=== PATIENT | female | born 1970 | race Caucasian/White ===

== ENCOUNTER 2018-06-18 18:30 | Emergency (ER) | payer OTHER ==
[~2018-06-18 18:30] MED LIST: Iopamidol 370 76% 100 ML VIAL ONE
[2018-06-18] MEDS ORDERED: Fentanyl 100 MCG/2 ML VIAL ONE ×2 (19:45→20:39)
[2018-06-18 19:48] LABS: Clarity SLIGHTLY (Clear)
[2018-06-18 19:49] LABS: Bilirubin Negative (Negative); Blood, Urine Negative (Negative); Glucose, Urine (Dipstick) Negative (Negative); Leukocyte Negative (Negative); Nitrite Negative (Negative); Protein, Urine (Dipstick) Negative (Neg-Trace); Urobilinogen 0.2 mg/dL (0.2-1.0); pH, Urine 7.5 (5.0-9.0)
[2018-06-18 19:53] LABS: BHCG - Serum Negative (NEGATIVE); Pregs Control Background? CLEAR/WHITE (CLR/WHITE); Pregs Control Bar Appear? YES (CONTROL BAR)
[2018-06-18 20:02] LABS: ALT (SGPT) 50 U/L (8-55); AST (SGOT) 31 U/L (5-34); Albumin 4.6 g/dL (3.5-5.0); Alkaline Phosphatase 74 U/L (40-150); Anion Gap 17 mmol/L (10-20); BUN (Urea Nitrogen) 9 mg/dL (7.0-18.7); Bilirubin, Total 0.4 mg/dL (0.2-1.2); Calc. Creatinine Clearance 0 mL/min (70-130); Calcium 10.1 mg/dL (7.8-10.44); Carbon Dioxide 22 mmol/L (22-29); Chloride 104 mmol/L (98-107); Estimated GFR-MDRD 88; Globulin 3.2 g/dL (2.4-3.5); Glucose 82 mg/dL (70-105); Lipase 47 U/L (8-78); Potassium 3.9 mmol/L (3.5-5.1); Protein, Total 7.8 g/dL (6.0-8.3); Sodium 139 mmol/L (136-145)
[2018-06-18 20:10] LABS: Band 1 % (5-11); Eosinophils 2 % (0-10); Lymphocytes 37 % (21-51); MDiff Complete? YES; Mean Corpuscular HGB CONC 31.8 g/dL (32.0-36.0); Mean Corpuscular Hemoglobin 28.8 pg (27.0-31.0); Mean Corpuscular Volume 90.7 fL (78.0-98.0); Mean Platelet Volume 5.9 fL (7.4-10.4); Monocytes 1 % (0-10); Neutrophil 59 % (42-75); Platelet Count 276 thou/uL (130-400); RBC Distribution Width 12.6 % (11.5-14.5); Red Blood Cell (RBC) Count 4.87 mill/uL (4.20-5.40); Small Platelets SLIGHT; White Blood Cell (WBC) Count 14.3 thou/uL (4.8-10.8)
[2018-06-18] MEDS ORDERED: Ketorolac Tromethamine 30 MG/ML VIAL ONE (20:40)
[2018-06-18] MEDS ORDERED: Piperacillin/Tazobactam 4.5 GM VIAL ONE (20:41)
--- NOTE | 2018-06-18 21:07 | CT ---
CT ABDOMEN AND PELVIS WITH CONTRAST: 06/18/[address] of the abdomen and pelvis was performed for evaluation of left lower quadrant pain. Axial s lices were acquired after giving IV contrast. Coronal and sagittal reconstructions were done. There is an intense inflammatory reaction around the lower left colon at the junction of lower descen ding colon and sigmoid colon. Diverticula are seen in the region. The findings are consistent with d iverticulitis. No abscess or free air was appreciated. Additionally, nearby there is a 2.7 cm left ov [place] cyst. The remainder of the scan was unremarkable. The lung bases are clear. The liver, spleen, pancreas, ad renal glands, kidneys, and abdominal aorta showed no acute findings. The CT of the pelvis was remarka ble for the findings listed above. There was no free air or free fluid in the pelvis. IMPRESSION: 1. Diverticulitis with intense inflammatory reaction at the junction of the lower descending and proximal sigmoid colon. 2. 2.7 cm left ovarian cyst. It would be better characterized by ultrasound to determine if it i s purely cystic or complex. This could be done electively. Findings discussed with Dr. Patel at 2025 on 06/18/18. POS: HOME
== END 2018-06-18 22:00 | disposition home or self-care (01) ==
LOC: BURERS 18:30
DX: K57.32 Diverticulitis of large intestine without perforation or abscess without bleeding (principal); N83.202 Unspecified ovarian cyst, left side; E11.9 Type 2 diabetes mellitus without complications; I10 Essential (primary) hypertension; Z79.899 Other long term (current) drug therapy; Z79.84 Long term (current) use of oral hypoglycemic drugs
CPT/HCPCS: 74177; 80053; 81003; 83690; 84703; 85025; 94760; 96365; 96375; 96376; J1885; J2543; J3010; Q9967

== ENCOUNTER 2020-08-16 07:52 | Emergency (ER) | payer OTHER ==
[2020-08-16] MEDS ORDERED: Fentanyl 100 MCG/2 ML VIAL ONE (08:20)
[2020-08-16] MEDS ORDERED: Ondansetron PF 4 MG/2 ML Vial ONE (08:20)
[2020-08-16 09:04] LABS: #Basophils 0.1 thou/uL (0.0-0.2); #Eosinphils 0.1 thou/uL (0.0-0.7); #Lymphocytes 1.8 thou/uL (1.20-3.40); #Monocytes 0.6 thou/uL (0.11-0.59); #Neutrophils 5.5 thou/uL (1.40-6.50); %Basophils 1.1 % (0.0-1.0); %Eosinophils 1.8 % (0.0-10.0); %Lymphocytes 22.7 % (21.0-51.0); %Monocytes 6.7 % (0.0-10.0); %Neutrophils 67.6 % (42.0-75.0); Hemoglobin 13.6 g/dL (12.0-16.0); Mean Corpuscular HGB CONC 31.7 g/dL (32.0-36.0); Mean Corpuscular Hemoglobin 29.5 pg (27.0-31.0); Mean Corpuscular Volume 92.8 fL (78.0-98.0); Mean Platelet Volume 6.9 fL (7.4-10.4); Platelet Count 275 thou/uL (130-400); RBC Distribution Width 12.5 % (11.5-14.5); Red Blood Cell (RBC) Count 4.62 mill/uL (4.20-5.40); White Blood Cell (WBC) Count 8.1 thou/uL (4.8-10.8)
[2020-08-16 09:13] LABS: Lactic Acid 2.2 mmol/L (0.5-2.2)
[2020-08-16 09:18] LABS: ALT (SGPT) 35 U/L (8-55); AST (SGOT) 28 U/L (5-34); Albumin 3.8 g/dL (3.5-5.0); Alkaline Phosphatase 91 U/L (40-110); Anion Gap 15 mmol/L (10-20); BUN (Urea Nitrogen) 10 mg/dL (7.0-18.7); Bilirubin, Total 0.3 mg/dL (0.2-1.2); Calc. Creatinine Clearance 0 mL/min (70-130); Calcium 8.6 mg/dL (7.8-10.44); Carbon Dioxide 23 mmol/L (22-29); Chloride 104 mmol/L (98-107); Globulin 2.7 g/dL (2.4-3.5); Glucose 242 mg/dL (70-105); Protein, Total 6.5 g/dL (6.0-8.3); Sodium 138 mmol/L (136-145)
[2020-08-16 09:28] LABS: Bilirubin Small (Negative); Blood, Urine Moderate (Negative); Clarity Slightly Cloudy (Clear); Glucose, Urine (Dipstick) 500 mg/dL (Negative); Ketone, Urine 15 mg/dL (Negative); Leukocyte Negative (Negative); Nitrite Negative (Negative); Pregnancy Test - Urine (BHCG) Negative (Negative); Pregu Control Background? CLEAR/WHITE (CLR/WHITE); Pregu Control Bar Appear? YES (CONTROL BAR); Protein, Urine (Dipstick) Negative (Neg-Trace); Specific Gravity 1.031 (1.002-1.036); Urobilinogen 0.2 mg/dL (Less than 2)
[2020-08-16 09:29] LABS: Specific Gravity, Urine 1.031 (1.002-1.036)
[2020-08-16 09:32] LABS: Bacteria/HPF 2+ HPF (None Seen); Mucous/LPF 4+ LPF (<2+); RBC/HPF 0-3 HPF (0-3); WBC/HPF 0-3 HPF (0-3)
[2020-08-16] MEDS ORDERED: Iopamidol 370 76% 100 ML VIAL ONE (16:25)
== END 2020-08-16 10:16 | disposition home or self-care (01) ==
LOC: BURERS 07:52
DX: K57.32 Diverticulitis of large intestine without perforation or abscess without bleeding (principal); E11.65 Type 2 diabetes mellitus with hyperglycemia; E28.2 Polycystic ovarian syndrome; I10 Essential (primary) hypertension; J45.909 Unspecified asthma, uncomplicated; Z79.84 Long term (current) use of oral hypoglycemic drugs; Z79.899 Other long term (current) drug therapy
CPT/HCPCS: 74177; 80053; 81003; 81015; 81025; 83605; 85025; 96374; 96375; J2405; J3010; Q9967

== ENCOUNTER 2023-08-10 10:45 | Emergency (ER) | payer OTHER ==
[2023-08-10] MEDS ORDERED: Dicyclomine 20 MG/2 ML VIAL ONE (11:07)
[2023-08-10] MEDS ORDERED: Ondansetron ODT 4 MG TAB ONE (11:07)
== END 2023-08-10 12:15 | disposition home or self-care (01) ==
LOC: BURERS 10:45
DX: U07.1 COVID-19 (principal); E11.9 Type 2 diabetes mellitus without complications; I10 Essential (primary) hypertension
CPT/HCPCS: 96372; 99283; Q0162